=== PATIENT | male | born 1965 | race Caucasian/White ===

== ENCOUNTER 2017-12-27 15:24 | Emergency (ER) | payer SELFPAY ==
--- NOTE | 2017-12-27 16:21 | RAD ---
HISTORY: POSSIBLE CRACKED RIBS, right-sided pain, trauma COMPARISONS: None VIEWS: 4, Frontal view of the chest with frontal and oblique views of the right hemithorax. FINDINGS: There is no displaced rib fracture or pneumothorax. The visualized lungs are clear. IMPRESSION: NO DISPLACED RIB FRACTURE OR PNEUMOTHORAX.
[2017-12-27] MEDS ORDERED: HYDROcodone/ACETAMIN 5-325 MG* 1 TAB PO ONE (17:26)
--- NOTE | 2017-12-27 17:39 | ED ---
Back Pain - HPI Summary HPI Summary: Pt. is a 52-year-old male who presents emergency department for right chest wall injury that occurred just prior to arrival. Patient states he works in construction and today he was in a tight spot when he suddenly twisted and had immediate pain to the right side of his ribs pain. Pain is worse with moving and taking a deep breath in. No other injuries were sustained. Symptoms are mild in severity. Has no significant past medical history. - History of Current Complaint Chief Complaint: EDChestWallPain Stated Complaint: RT RIB PAIN Time Seen by Provider: 12/27/17 17:09 Hx Obtained From: Patient Pain Intensity: 8 - Allergies/Home Medications Allergies/Adverse Reactions: Allergies Allergy/AdvReac Type Severity Reaction Status Date / Time No Known Allergies Allergy Verified 12/27/17 15:45 Home Medications: Home Medications FLUoxetine CAP* [PROzac CAP*] 40 mg PO DAILY 12/27/17 [History Confirmed ] Folic Acid TAB* [Folvite TAB*] 1 mg PO DAILY 12/27/17 [History Confirmed ] Methotrexate TAB* 7.5 mg PO WEEKLY 12/27/17 [History Confirmed 12/27/17] PMH/Surg Hx/FS Hx/Imm Hx Previously Healthy: Yes Cardiovascular History: Reports: Other Cardiovascular Problems/Disorders - PERICARDITIS 2001 - Immunization History Immunizations Up to Date: Yes Infectious Disease History: No Infectious Disease History: Denies: Traveled Outside the [place] in Last 30 Days - Social History Occupation: Employed Full-time Lives: With Family Alcohol Use: Occasionally Substance Use Type: Reports: None Smoking Status (MU): Current Every Day Smoker Review of Systems Positive: Other - Right lateral rib pain. Skin: Negative All Other Systems Reviewed And Are Negative: Yes Physical Exam Triage Information Reviewed: Yes Vital Signs On Initial Exam: Initial Vitals Temp Pulse Resp BP Pulse Ox 99.8 F 84 18 125/80 94 12/27/17 15:34 12/27/17 15:34 12/27/17 15:34 12/27/17 15:34 12/27/17 15:34 Vital Signs Reviewed: Yes Appearance: Positive: Pain Distress - Pt. sitting up in chair holding right side of rib cage. Appears in pain but nontoxic. present. Skin: Positive: Warm, Dry Head/Face: Positive: Normal Head/Face Inspection Eyes: Positive: Normal Neck: Positive: Supple Respiratory/Lung Sounds: Positive: Clear to Auscultation, Breath Sounds Present Cardiovascular: Positive: Normal, RRR Musculoskeletal: Positive: Other - Pain on palpatoin over the right lateral/ posterior ribs. No rash. Small abrasion to back. No CVA tenderness. Neurological: Positive: Normal, CN Intact II-III Psychiatric: Positive: Affect/Mood Appropriate Diagnostics - Vital Signs Vital Signs Temp Pulse Resp BP Pulse Ox 12/27/17 15:34 99.8 F 84 18 125/80 94 - Laboratory Lab Statement: Any lab studies that have been ordered have been reviewed, and results considered in the medical decision making process. Back Pain Course/Dx - Course Course Of Treatment: Patient presenting for right-sided lateral posterior rib pain after a twisting injury at work. O2 saturation is 94-99% room air which is normal. Chest rib x-rays obtained and are negative for pneumothorax or displaced fracture, reading per radiology. Patient was given 2 Lortab in the ER for pain. Right rib contusion versus occult fracture versus strain. Will rx a few days hydrocodone. DISPLAY FAB[employer]ICATOR was queried and no red flags identified. Advised patient to take an anti-inflammatory as well. To ice affected areas intermittently. Close follow-up with PCP and return to the ER for increased pain, chest pain, shortness of breath, fever. Patient and understand and agree with plan. - Diagnoses Differential Diagnosis/HQI/PQRI: Positive: Fracture, Herniated Disc, Strain, Sprain Provider Diagnoses: Rib contusion, Sprain of chest wall Discharge - Sign-Out/Discharge Documenting (check all that apply): Patient Departure - Discharge Plan Condition: Good Disposition: HOME Prescriptions: HYDROcodone/ACETAMIN 5-325 MG* [[place] 5-325 TAB*] 1 tab PO Q6H PRN #12 tab MDD 4tablets PRN Reason: Pain Hydrocodone/Acetaminophen [Hydrocodone-Acetamin 5-325 mg] 1 each PO Q6H #12 tablet MDD 4tablets Patient Education Materials: Muscle Strain (ED), Rib Contusion (ED) Referrals: Donta Diego MD [Primary Care Provider] - Additional Instructions: Follow up with your PCP Take hydrocodone as directed Take an NSAID as directed such as motrin Ice intermittently Activity as tolerated Return to ER for increased pain, shortness of breath, fever, or if concerned - Billing Disposition and Condition Condition: GOOD Disposition: Home
[2017-12-27 18:14] VITALS: BP 129/70
== END 2017-12-27 18:10 | disposition home or self-care (01) ==
LOC: ED 15:24
DX: S23.8XXA Sprain of other specified parts of thorax, initial encounter (principal); S20.20XA Contusion of thorax, unspecified, initial encounter; X50.1XXA Overexertion from prolonged static or awkward postures, initial encounter; Y93.H3 Activity, building and construction; Y92.9 Unspecified place or not applicable; Y99.0 Civilian activity done for income or pay; F17.200 Nicotine dependence, unspecified, uncomplicated
CPT/HCPCS: 99282

== ENCOUNTER 2021-02-28 08:47 | Inpatient (IN) ==
[2021-02-28] MEDS ORDERED: Lactated Ringers 1000 ml BAG IV.FLUID IV ONE (08:56)
[2021-02-28] MEDS ORDERED: ceFAZolin 2 GM in NS PREMIX 2 GM/100 ML BAG IVPB ONE (09:43)
[2021-02-28] MEDS ORDERED: Vancomycin 1,000 MG in NS 0.9% 250 ml 250 ML IVPB ONE (10:00)
[2021-02-28 10:12] LABS: Rapid COVID-19 Molecular Undetected (Undetected)
[2021-02-28 10:18] LABS: ABS Eosinophils 0.1 10^3/ul (0-0.6); ABS Lymphocytes 0.4 10^3/ul (1.0-4.8); ABS Monocytes 0.9 10^3/ul (0-0.8); ABS Neutrophils 9.4 10^3/ul (1.5-7.7); Eosinophil % 0.5 %; Hematocrit 47 % (42-52); Hemoglobin 16.4 g/dL (14.0-18.0); Mean Corpuscular HGB Conc 35 g/dL (31-36); Mean Corpuscular Hemoglobin 33 pg (27-31); Mean Corpuscular Volume 95 fL (80-94); Mean Platelet Volume 7.9 fL (7.4-10.4); Platelet Count 308 10^3/uL (150-450); Red Blood Count 4.95 10^6 /uL (4.18-5.48); Red Cell Distribution Width 14 % (10-15); White Blood Count 10.8 10^3/uL (3.5-10.8)
[2021-02-28 10:19] LABS: Activated Partial Thrombo Time 30.8 seconds (26.0-38.0); INR 1.02 (0.86-1.15)
[2021-02-28 10:20] LABS: Albumin 4.2 g/dL (3.2-5.2); Albumin/Globulin Ratio 1.4 (1-3); C Reactive Protein 64.22 mg/L (<8.01); Calcium 9.2 mg/dL (8.6-10.3); EGFR African American 98.4 (>60); EGFR Non-African American 81.3 (>60); Potassium 4.4 mmol/L (3.5-5.0); Total Bilirubin 1.9 mg/dL (0.2-1.0); Total Protein 7.2 g/dL (6.4-8.9)
[2021-02-28 10:21] LABS: Troponin I 0.01 ng/mL (<0.03)
[2021-02-28] MEDS ORDERED: diPHENhydraMINE IV 50 MG/ML 1 ml VIAL (BENADRYL) IV PRN (10:50)
[2021-02-28] MEDS ORDERED: Lactulose 30 ml UDC PO PRN (10:50)
[2021-02-28] MEDS ORDERED: Magnesium Hydroxide LIQ 30 ML UDC PO PRN (10:50)
[2021-02-28] MEDS ORDERED: diPHENhydraMINE 25 mg TAB PO PRN (10:50)
[2021-02-28] MEDS ORDERED: Morphine 2 MG/ML SYRINGE IV PRN (10:50)
[2021-02-28] MEDS ORDERED: Ondansetron ODT 4 mg TAB 4 MG TAB PO PRN (10:50)
[2021-02-28] MEDS ORDERED: Ondansetron 4 mg VIAL 2 MG/ML 2 ml VIAL IV PRN (10:50)
[2021-02-28] MEDS ORDERED: Vancomycin per Pharmacy 1 EA NOTE FOLLOW UP SCH (11:00)
[2021-02-28 11:26] LABS: Body Fluid Appearance Bloody; Body Fluid Color Red
[2021-02-28 11:39] LABS: Body Fluid WBC 70715 /mcL
[2021-02-28] MEDS ORDERED: Diclofenac Sod EC 25 mg TAB PO PRN (12:05)
[2021-02-28 12:44] LABS: Urine Appearance Clear; Urine Bilirubin Negative (Negative); Urine Blood Negative (Negative); Urine Color Yellow; Urine Glucose Negative (Negative); Urine Ketones Negative (Negative); Urine Nitrite Negative (Negative); Urine Protein Negative (Negative); Urine Specific Gravity 1.006 (1.002-1.030); Urine Urobilinogen Negative (Negative)
[2021-02-28 13:34] LABS: EGFR Non-African American 111.6 (>60)
[2021-02-28 15:26] LABS: Body Fluid Mono 5 %; Body Fluid Total Cells Counted 200
[2021-02-28 15:32] LABS: Body Fluid Source Synovial Fluid
[2021-02-28] MEDS: ceFAZolin 1 GM ADVAN 1 GM in NS 0.9% 50 ML 50 ML IVPB SCH (17:58)
[2021-02-28] MEDS: Heparin 5000 UNITS/ML 1 mL VIAL SUBCUT SCH (21:55)
[2021-02-28] MEDS: Magnesium Hydroxide LIQ 30 ML UDC PO SCH (21:55)
[2021-03-01] MEDS: ceFAZolin 1 GM ADVAN 1 GM in NS 0.9% 50 ML 50 ML IVPB SCH ×2 (02:01→10:05)
[2021-03-01 06:24] LABS: ABS Basophils 0.1 10^3/ul (0-0.2); ABS Eosinophils 0.1 10^3/ul (0-0.6); ABS Lymphocytes 0.4 10^3/ul (1.0-4.8); ABS Monocytes 0.8 10^3/ul (0-0.8); ABS Neutrophils 8.8 10^3/ul (1.5-7.7); Eosinophil % 1.2 %; Hematocrit 44 % (42-52); Hemoglobin 15.1 g/dL (14.0-18.0); Lymphocyte % 4.2 %; Mean Corpuscular HGB Conc 34 g/dL (31-36); Mean Corpuscular Hemoglobin 33 pg (27-31); Mean Corpuscular Volume 97 fL (80-94); Mean Platelet Volume 7.5 fL (7.4-10.4); Nucleated Red Blood Cells % 0.1; Platelet Count 259 10^3/uL (150-450); Red Cell Distribution Width 14 % (10-15); White Blood Count 10.2 10^3/uL (3.5-10.8)
[2021-03-01 06:39] LABS: C Reactive Protein 229.79 mg/L (<8.01); Calcium 8.8 mg/dL (8.6-10.3); EGFR African American 107.4 (>60); EGFR Non-African American 88.7 (>60); Potassium 4.2 mmol/L (3.5-5.0)
[2021-03-01] MEDS: Magnesium Hydroxide LIQ 30 ML UDC PO SCH ×2 (08:22→20:31)
[2021-03-01] MEDS: Vitamin THERAPEUTIC TAB PO SCH (08:22)
[2021-03-01] MEDS: DULoxetine DR 30 mg CAP PO SCH (08:22)
[2021-03-01] MEDS: Heparin 5000 UNITS/ML 1 mL VIAL SUBCUT SCH ×2 (08:22→20:29)
[2021-03-01] MEDS ORDERED: Flu vaccine *QUAD* 2021-22* 0.5 ML SYRINGE IM ONE (09:00)
[2021-03-01] MEDS ORDERED: ceFAZolin 2 GM in NS PREMIX 2 GM/100 ML BAG IVPB SCH (16:00)
[2021-03-01] MEDS ORDERED: Vancomycin 1,000 MG - ONCE IVPB ONE (17:00)
[2021-03-01] MEDS ORDERED: Vancomycin per Pharmacy 1 EA NOTE FOLLOW UP SCH (17:00)
[2021-03-01] MEDS ORDERED: Vancomycin 1,000 MG in NS 0.9% 250 ml 250 ML IVPB ONE (17:12)
[2021-03-01] MEDS ORDERED: NS 0.9% 1000 ml BAG 1,000 ML IV SCH (17:15)
[2021-03-02] MEDS: Vancomycin 1000 MG in NS 0.9% 250 ML IVPB SCH ×3 (02:17→18:06)
[2021-03-02 06:26] LABS: ABS Eosinophils 0.2 10^3/ul (0-0.6); ABS Lymphocytes 0.7 10^3/ul (1.0-4.8); ABS Monocytes 0.7 10^3/ul (0-0.8); ABS Neutrophils 7.1 10^3/ul (1.5-7.7); Eosinophil % 2.5 %; Hematocrit 43 % (42-52); Hemoglobin 14.5 g/dL (14.0-18.0); Mean Corpuscular HGB Conc 34 g/dL (31-36); Mean Corpuscular Hemoglobin 33 pg (27-31); Mean Corpuscular Volume 97 fL (80-94); Mean Platelet Volume 7.8 fL (7.4-10.4); Nucleated Red Blood Cells % 0.1; Platelet Count 229 10^3/uL (150-450); Red Blood Count 4.43 10^6 /uL (4.18-5.48); Red Cell Distribution Width 14 % (10-15); White Blood Count 8.8 10^3/uL (3.5-10.8)
[2021-03-02 06:44] LABS: Albumin 3.3 g/dL (3.2-5.2); Albumin/Globulin Ratio 1.1 (1-3); C Reactive Protein 230.97 mg/L (<8.01); Calcium 8.5 mg/dL (8.6-10.3); EGFR African American 123.2 (>60); EGFR Non-African American 101.8 (>60); Globulin 2.9 g/dL (2-4); Total Bilirubin 0.8 mg/dL (0.2-1.0); Total Protein 6.2 g/dL (6.4-8.9)
[2021-03-02] MEDS: Magnesium Hydroxide LIQ 30 ML UDC PO SCH ×2 (10:02→21:07)
[2021-03-02] MEDS: DULoxetine DR 30 mg CAP PO SCH (10:03)
[2021-03-02] MEDS: Vitamin THERAPEUTIC TAB PO SCH (10:03)
[2021-03-02] MEDS ORDERED: Vancomycin Trough Check NOTE FOLLOW UP ONE (16:30)
[2021-03-02] MEDS: Vancomycin 1,250 MG in NS 0.9% 250 ml 250 ML IVPB SCH (17:53)
[2021-03-03] MEDS: Vancomycin 1,250 MG in NS 0.9% 250 ml 250 ML IVPB SCH ×2 (01:51→10:11)
[2021-03-03 05:41] LABS: Hematocrit 40 % (42-52); Hemoglobin 13.6 g/dL (14.0-18.0); Mean Corpuscular HGB Conc 34 g/dL (31-36); Mean Corpuscular Hemoglobin 33 pg (27-31); Mean Corpuscular Volume 95 fL (80-94); Mean Platelet Volume 7.6 fL (7.4-10.4); Platelet Count 245 10^3/uL (150-450); Red Blood Count 4.15 10^6 /uL (4.18-5.48); Red Cell Distribution Width 14 % (10-15); White Blood Count 7.3 10^3/uL (3.5-10.8)
[2021-03-03 05:42] LABS: ABS Eosinophils 0.3 10^3/ul (0-0.6); ABS Lymphocytes 0.9 10^3/ul (1.0-4.8); ABS Monocytes 0.7 10^3/ul (0-0.8); ABS Neutrophils 5.4 10^3/ul (1.5-7.7); Eosinophil % 4.4 %; Lymphocyte % 11.8 %
[2021-03-03 05:50] LABS: Potassium 3.9 mmol/L (3.5-5.0)
[2021-03-03 05:51] LABS: C Reactive Protein 174.28 mg/L (<8.01); Calcium 8.4 mg/dL (8.6-10.3); EGFR Non-African American 123.2 (>60)
[2021-03-03] MEDS: Vitamin THERAPEUTIC TAB PO SCH (08:26)
[2021-03-03] MEDS: DULoxetine DR 30 mg CAP PO SCH (08:26)
[2021-03-03] MEDS: Magnesium Hydroxide LIQ 30 ML UDC PO SCH ×2 (09:12→21:00)
[2021-03-03 10:51] LABS: ABS Eosinophils 0.2 10^3/ul (0-0.6); ABS Lymphocytes 0.7 10^3/ul (1.0-4.8); ABS Monocytes 0.7 10^3/ul (0-0.8); ABS Neutrophils 6.3 10^3/ul (1.5-7.7); Eosinophil % 2.9 %; Hematocrit 43 % (42-52); Hemoglobin 14.8 g/dL (14.0-18.0); Lymphocyte % 8.7 %; Mean Corpuscular HGB Conc 34 g/dL (31-36); Mean Corpuscular Hemoglobin 33 pg (27-31); Mean Corpuscular Volume 96 fL (80-94); Mean Platelet Volume 7.1 fL (7.4-10.4); Platelet Count 252 10^3/uL (150-450); Red Blood Count 4.51 10^6 /uL (4.18-5.48); Red Cell Distribution Width 14 % (10-15); White Blood Count 7.9 10^3/uL (3.5-10.8)
[2021-03-03 10:59] LABS: Activated Partial Thrombo Time 31.8 seconds (26.0-38.0); INR 0.98 (0.86-1.15)
[2021-03-03] MEDS: Heparin 5000 UNITS/ML 1 mL VIAL SUBCUT SCH ×2 (12:13→21:00)
[2021-03-03] MEDS: ceFAZolin 2 GM in NS PREMIX 2 GM/100 ML BAG IVPB SCH ×2 (17:09→23:21)
[2021-03-04] MEDS: Vitamin THERAPEUTIC TAB PO SCH (07:08)
[2021-03-04] MEDS: Magnesium Hydroxide LIQ 30 ML UDC PO SCH ×2 (07:08→20:14)
[2021-03-04] MEDS: Heparin 5000 UNITS/ML 1 mL VIAL SUBCUT SCH ×2 (07:08→20:22)
[2021-03-04] MEDS: DULoxetine DR 30 mg CAP PO SCH (07:08)
[2021-03-04] MEDS: ceFAZolin 2 GM in NS PREMIX 2 GM/100 ML BAG IVPB SCH ×2 (07:46→15:52)
[2021-03-04] MEDS ORDERED: Vancomycin Trough Check NOTE FOLLOW UP ONE (09:30)
[2021-03-04 10:10] LABS: EGFR Non-African American 111.6 (>60)
[2021-03-04 10:17] LABS: Vancomycin Trough 5.4 mcg/mL
[2021-03-05] MEDS: ceFAZolin 2 GM in NS PREMIX 2 GM/100 ML BAG IVPB SCH ×3 (00:28→16:11)
[2021-03-05] MEDS: Heparin 5000 UNITS/ML 1 mL VIAL SUBCUT SCH ×2 (11:08→20:35)
[2021-03-05] MEDS: DULoxetine DR 30 mg CAP PO SCH (11:13)
[2021-03-05] MEDS: Magnesium Hydroxide LIQ 30 ML UDC PO SCH ×2 (11:14→20:49)
[2021-03-05] MEDS: Vitamin THERAPEUTIC TAB PO SCH (11:14)
[2021-03-06] MEDS: ceFAZolin 2 GM in NS PREMIX 2 GM/100 ML BAG IVPB SCH ×2 (00:05→08:23)
[2021-03-06 06:38] LABS: ABS Basophils 0.1 10^3/ul (0-0.2); ABS Eosinophils 0.2 10^3/ul (0-0.6); ABS Lymphocytes 1.1 10^3/ul (1.0-4.8); ABS Monocytes 0.7 10^3/ul (0-0.8); ABS Neutrophils 4.6 10^3/ul (1.5-7.7); Eosinophil % 2.5 %; Hematocrit 43 % (42-52); Hemoglobin 14.8 g/dL (14.0-18.0); Lymphocyte % 16.1 %; Mean Corpuscular HGB Conc 35 g/dL (31-36); Mean Corpuscular Hemoglobin 33 pg (27-31); Mean Corpuscular Volume 94 fL (80-94); Mean Platelet Volume 7.4 fL (7.4-10.4); Nucleated Red Blood Cells % 0.1; Platelet Count 419 10^3/uL (150-450); Red Blood Count 4.53 10^6 /uL (4.18-5.48); Red Cell Distribution Width 14 % (10-15); White Blood Count 6.6 10^3/uL (3.5-10.8)
[2021-03-06] MEDS: DULoxetine DR 30 mg CAP PO SCH (08:21)
[2021-03-06] MEDS: Vitamin THERAPEUTIC TAB PO SCH (08:22)
[2021-03-06] MEDS: Magnesium Hydroxide LIQ 30 ML UDC PO SCH (08:24)
[2021-03-06] MEDS: Heparin 5000 UNITS/ML 1 mL VIAL SUBCUT SCH (08:31)
[2021-03-06 12:00] VITALS: BP 119/78
== END 2021-03-06 14:45 | disposition home or self-care (01) | DRG 872 ==
LOC: ED 08:47 → SSU 10:51
PROVIDERS: ADMIT Internal Medicine; ATTEND Orthopaedic Surgery Hand Surgery